=== PATIENT | male | born 1950 | race African-American/Black ===

== ENCOUNTER 2020-05-12 14:45 | Emergency (ER) | payer MEDICARE, OTHER ==
[~2020-05-12] VITALS: Ht 170.2 cm; Wt 79.4 kg
[~2020-05-12 14:45] MED LIST: CEPHALEXIN500 MG ORAL; NORCO 5-325 TA1 EACH ORAL
[2020-05-12 14:55] VITALS: BP 127/73
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
[2020-05-12] MEDS ORDERED: Methocarbamol 750mg tab ORAL ONE (15:30)
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
--- NOTE | 2020-05-12 16:00 | Diagnostic Imaging Report ---
Indication: Chest pain Technique: One view of the chest Comparison: none Findings: Semicircular opacity at the right lung base measures 3 cm diameter. There is some scalloping of the left hemidiaphragm. The lungs and pleural spaces are clear, are somewhat hyperinflated. The heart size is normal. Impression: No acute process Semicircular opacity the right lung base most likely represents scalloping of the right hemidiaphragm, particularly in view of similar findings on the contralateral side. Nonetheless, mass lesion also possible, and further evaluation with CT should be considered as clinically indicated. This finding was phoned to nurse pa Gates in the emergency room at the time of interpretation
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
[2020-05-12] MEDS ORDERED: ROBAXIN-750750 MG PO (16:38)
[2020-05-12] MEDS ORDERED: TYLENOL EXTRA500 MG ORAL (16:38)
[2020-05-12 16:45] VITALS: BP 125/71
--- NOTE | 2020-05-12 16:45 | NUR ---
ED Nurse Note: Pt cleared by ERPA for discharge. DC instructions was given and explained to pt and verbalized understanding of teachings. prescription sent to [facility]. All medical deviecs such as ID band removed. Pt is AAO x4, ambulatory and left with all personal belongings.
== END 2020-05-12 16:45 | disposition home or self-care (01) ==
LOC: EMR 15:32
DX: S16.1XXA Strain of muscle, fascia and tendon at neck level, initial encounter (principal); R91.8 Other nonspecific abnormal finding of lung field; V43.52XA Car driver injured in collision with other type car in traffic accident, initial encounter; Y92.411 Interstate highway as the place of occurrence of the external cause
CPT/HCPCS: 71045; 72125; 82803; 99284